=== PATIENT | female | born 1995 | race Hispanic/Latino ===

== ENCOUNTER → 2017-07-17 | Outpatient (CLI) | payer SELFPAY ==
[~2017-07-17] MED LIST: IBUP-1773 PO
--- NOTE | 2017-07-17 17:48 | Diagnostic Imaging Report ---
PROCEDURE: US OB SINGLE FETUS <14 WKS. TECHNIQUE: Multiple real-time grayscale images were obtained over the gravid uterus in various projections. INDICATION: Threatened miscarriage. FINDINGS: The uterus measures 7.1 x 4.4 x 5.0 cm and there is endometrial prominence measuring 0.8 cm in thickness. Endometrium is echogenic which could be related to hemorrhage. No intrauterine gestational sac is identified. The ovaries are also unremarkable with occasional follicles. There is no evidence of ectopic detected. No free fluid is seen. IMPRESSION: No evidence of . There is endometrial thickening. This could be related to early decidual reaction or hemorrhage. Clinical correlation and possible followup would be of use. Dictated by: Dictated on workstation # [id number]
== END ==
LOC: RAD 17:08
PROVIDERS: ATTEND Family Medicine
DX: O20.0 Threatened abortion (principal); Z3A.00 Weeks of gestation of pregnancy not specified
CPT/HCPCS: 76801

== ENCOUNTER → 2018-04-14 | Outpatient (CLI) | payer OTHER ==
--- NOTE | 2018-04-14 16:53 | Diagnostic Imaging Report ---
PROCEDURE: US OB SINGLE FETUS <14 WKS. TECHNIQUE: Multiple real-time grayscale images were obtained over the gravid uterus in various projections. INDICATION: Dating. FINDINGS: There is an intrauterine gestational sac containing a pole. Schwana-rump length measurement is 4.5 cm consistent with 11 weeks 3 days gestation. heart rate is recorded at 169 beats per minute. No perigestational sac hemorrhage is seen. Gestational sac shape appears appropriate. Adnexal evaluation demonstrates the right ovary to be unremarkable. Left ovary is obscured by bowel gas. IMPRESSION: Single live IUP of 11 weeks 3 days gestational age. Dictated by: Dictated on workstation # [id number]
== END ==
LOC: RAD 15:55
PROVIDERS: ATTEND Family Medicine
DX: Z34.81 Encounter for supervision of other normal pregnancy, first trimester (principal); Z3A.11 11 weeks gestation of pregnancy
CPT/HCPCS: 76801

== ENCOUNTER → 2018-06-18 | Outpatient (CLI) | payer OTHER ==
--- NOTE | 2018-06-18 14:26 | Diagnostic Imaging Report ---
INDICATION: Undergoing anatomical assessment. TECHNIQUE: Multiple real-time grayscale images were obtained over the gravid uterus. COMPARISON: 04/14/2018. FINDINGS: There is a single viable intrauterine currently in cephalic presentation. There is normal amount of amniotic fluid. The placenta is anterior and without evidence for previa. cardiac activity is 146 beats per minutes. anatomical evaluation including visualization of kidneys, bladder, stomach, intracranial structures, four-chamber heart, three-vessel cord and cord insertion site as well as spine appear unremarkable. Maternal adnexa not imaged. Biometrical measurements are as follows: Biparietal 4.83 cm, age 20 weeks 5 days. Head circumference 17.69 cm, age 20 weeks 2 days. Abdominal circumference 15.21 cm, age 20 weeks 3 days. Femur length 3.31 cm, age 20 weeks 3 days. Sonographic estimate age: 20 weeks 4 days. Sonographic estimated date of delivery: 11/01/18. Estimated Weight: 350 gm (+/- 51 gm). LMP percentile: 28%. heart rate: 146 beats per minute. number: 1 of 1. IMPRESSION: Single viable intrauterine with a sonographically estimated age of 20 weeks 4 days for an estimated date of delivery November 01, 2018. Cephalic presentation. No abnormalities noted at this time. Dictated by: Dictated on workstation # [id number]
== END ==
LOC: RAD 10:14
PROVIDERS: ATTEND Family Medicine
DX: Z34.92 Encounter for supervision of normal pregnancy, unspecified, second trimester (principal); Z3A.20 20 weeks gestation of pregnancy
CPT/HCPCS: 76805